=== PATIENT | male | born 1985 | race Caucasian/White ===

== ENCOUNTER 2017-05-01 17:28 | Emergency (ER) | payer MEDICARE, OTHER ==
[~2017-05-01] VITALS: Ht 182.9 cm; Wt 108.9 kg
[~2017-05-01 17:28] MED LIST: ASPIRIN 325MG325 MG PO; ATIVAN GENERIC0.5 MG PO; AUGMENTIN 875-1 EACH PO; COUMADIN 5MG TAB5 MG PO; LOVENOX 10100 MG/1 M SC; NEXIUM40 MG PO; PERCOCET 325 MG1 TA3 PO; PERCOCET 5/3251 EACH PO; SEROQUEL 25MG T25 MG PO; TORADOL10 M1 PO; TRAMADOL 50MG T50 MG PO; VENTOLIN H0.09 MG/AC INH; XANAX2 MG PO; ZOLOFT100 MG PO; ZOLPIDEM 10MG T10 MG PO
--- OUTSIDE RECORDS SUMMARY | 2017-05-01 17:35 | External Medical Summary Rpt ---
Author Author , Organization [employer] Address Unknown Phone Unavailable Purpose Continuity of Care Document - through 2016 Problems Code Diagnosis DOS Provider Status B19.20 UNSPECIFIED VIRAL HEPATITIS C WITHOUT HEPATIC COMA F11.90 OPIOID USE, UNSPECIFIED , UNCOMPLICAT ED M54.2 CERVICALGIA M79.602 PAIN IN LEFT ARM R07.89 OTHER CHEST PAIN Z79.899 OTHER SENIOR LIVING (CURRENT) DRUG THERAPY
--- OUTSIDE RECORDS SUMMARY | 2017-05-01 17:35 | External Medical Summary Rpt ---
Author Author , Organization [employer] Address Unknown Phone Unavailable Purpose Continuity of Care Document - through 2016 Problems Code Diagnosis DOS Provider Status B19.20 UNSPECIFIED VIRAL HEPATITIS C WITHOUT HEPATIC COMA F11.90 OPIOID USE, UNSPECIFIED , UNCOMPLICAT ED M54.2 CERVICALGIA M79.602 PAIN IN LEFT ARM R07.89 OTHER CHEST PAIN Z79.899 OTHER JAIL (CURRENT) DRUG THERAPY
--- OUTSIDE RECORDS SUMMARY | 2017-05-01 17:35 | External Medical Summary Rpt ---
Demographics Preferred Language Guatemalan Marital Status Unknown Congregation Affiliation Unknown Race Unknown Ethnic Group Unknown Author Author , Organization [employer] Address Unknown Phone Unavailable Purpose Continuity of Care Document - through 2016 Immunization No patient found.
--- OUTSIDE RECORDS SUMMARY | 2017-05-01 17:35 | External Medical Summary Rpt ---
Demographics Preferred Language Swazi Marital Status Unknown Worship Affiliation Unknown Race Unknown Ethnic Group Unknown Author Author , Organization [employer] Address Unknown Phone Unavailable Purpose Continuity of Care Document - through 2016 Immunization No patient found.
--- OUTSIDE RECORDS SUMMARY | 2017-05-01 17:36 | External Medical Summary Rpt ---
Author Author DARIANA Hansen, [employer] Organization [employer] Address Unknown Phone Unavailable Results CBC W Auto Differential panel in Blood Observa Value Referen Units Interpr Notes Date tion ce etation Range Basophils 0 - 0.2 K/MM3 Normal No Apr 18 informati 2017 9:10 [#/volume on in AM ] in source Blood by data Automated count Basophils 0.1 - 2.0 % Normal No Apr 18 /100 informati 2017 9:10 leukocyte on in AM s in source Blood by data Automated count Eosinophi 0.0 - 0.4 K/mm3 Normal No Apr 18 ls informati 2017 9:10 [#/volume on in AM ] in source Blood by data Automated count Eosinophi 0.1 - % Normal No Apr 18 ls/100 12.0 informati 2017 9:10 leukocyte on in AM s in source Blood by data Automated count Granulocy 1.3 - 8.0 K/mm3 Normal No Apr 18 radha informati 2017 9:10 [#/volume on in AM ] in source Blood by data Automated count Granulocy 37.0 - % Normal No Apr 18 radha/100 80.0 informati 2017 9:10 leukocyte on in AM s in source Blood by data Automated count Hematocri 42.0 - % Low No Apr 18 t [Volume 52.0 informati 2017 9:10 on in AM Fraction] source of Blood data Hemoglobi 14.1 - g/dL Low No Apr 18 n 18.0 informati 2017 9:10 [Mass/vol on in AM ume] in source Blood data Lymphocyt 0.7 - 4.5 K/mm3 Normal No Apr 18 es informati 2017 9:10 [#/volume on in AM ] in source Unspecifi data ed specimen by Automated count Lymphocyt 10 - 50 % Normal No Apr 18 es informati 2017 9:10 [#/volume on in AM ] in source Unspecifi data ed specimen by Automated count Erythrocy 27 - 31.2 pg Normal No Apr 18 te mean informati 2017 9:10 corpuscul on in AM ar source hemoglobi data n [Entitic mass] Erythrocy 31.8 - g/dl Normal No Apr 18 te mean 35.4 informati 2017 9:10 corpuscul on in AM ar source hemoglobi data n concentra tion [Mass/vol ume] by Automated count Erythrocy 82.2 - fl Low No Apr 18 te mean 97.8 informati 2017 9:10 corpuscul on in AM ar volume source [Entitic data volume] by Automated count Monocytes 0.1 - 1.0 K/mm3 Normal No Apr 18 informati 2017 9:10 [#/volume on in AM ] in source Blood by data Automated count Monocytes 1.7 - 9.3 % Normal No Mar 21 /100 informati 2017 9:10 leukocyte on in AM s in source Blood by data Automated count Platelet 7.4 - fl Low No Apr 18 mean 10.4 informati 2017 9:10 volume on in AM [Entitic source volume] data in Blood by Automated count Platelets 142 - 424 K/mm3 Normal No Apr 18 informati 2017 9:10 [#/volume on in AM ] in source Blood data Erythrocy 4.6 - 6.2 M/mm3 Normal No Apr 18 radha informati 2017 9:10 [#/volume on in AM ] in source Amniotic data fluid Erythrocy 11.5 - % Normal No Apr 18 te 17.5 informati 2017 9:10 distribut on in AM ion width source [Entitic data volume] by Automated count Leukocyte 4.8 - K/MM3 Normal No Mar 21 s 10.8 informati 2017 9:10 [#/volume on in AM ] in source Blood data
--- OUTSIDE RECORDS SUMMARY | 2017-05-01 17:36 | External Medical Summary Rpt ---
Author Author DARIANA Hansen, [employer] Organization [employer] Address Unknown Phone Unavailable Results CBC [...]
[2017-05-01] MEDS ORDERED: ASPIRIN 81MG TA81 MG PO (17:45)
[2017-05-01] MEDS ORDERED: IBUPROFEN800 MG PO (18:11)
--- NOTE | 2017-05-01 18:12 | Urgent Treatment Center Report ---
History of Present Issue Visit Reason Pt arrived:Walked Presenting Problem:PT STATES PRESSURE TO LEFT SIDE OF NECK. STATES AREA WAS HOT TO TOUCH. AND GOES INTO HIS LEFT EAR. STATES HAVING A BUSTED EAR DRUM THAT HE WAS SEEN FOR APPROX ONE WEEK AGO AND TAKING ANTIBIOTICS FOR Location if Accident: Onset of symptoms date/time:/ or onset unknown for:MEDICAL HX UNKNOWN Have you (or family members/close friends) recently traveled outside the [place]? N If Yes, where/when: Have you had exposure to infectious disease within the past month? TB? Other? Specify: Patient state that he was recently seen and treated here at the [facility] for sorethroat and swollen lymph nodes. State that today he is having dental pain and states that he thought the lymph nodes may be swollen again states that his left ear was hot to touch and has had a "busted eardrum" in there for about a year. States that he came in today to make sure that the infection was clearing up and to get something for his dental pain ALLERGIES Coded Allergies: erythromycin base (Mild, 04/18/17) Home Medications Active Scripts Amoxicillin/Potassium Clav (Augmentin 875-125 Tablet) 1 EACH PO BID #20 TAB Prov: 04/23/17 Reported Medications ASPIRIN (Aspirin) 81 MG PO DAILY History Medical History General CAD? No Angina: No [place]: No Hypertension? No Hyperlipidemia? No CHF? No DVT? No PE? No COPD? No Asthma? No Anemia? No GERD? No Gastric ulcers? No GI Bleed? No Hernia? No Thyroid Problems? No Hypothyroidism? No CVA? No Seizures? No Diabetes? No Renal Insuffiency? No UTI? No Stones? No BPH? No GB Disease: No Nephritic Syndrome? No Asplenia? No Hepatitis? Yes Sickle Cell Disease? No Arthritis? No Migraines? No Cataracts? No Glaucoma? No MRSA? No HIV? No TB? No Anxiety? No Depression? No Cancer? No More? No Immunization HX DT/Tetanus Unknown Flu LAST YEAR Pneumonia NEVER Surgical Hx Previous Surgery?Y TEAR DUCT R KNEE Social History Smoking Hx Smoker: Current Every Day Smoker Tobacco: Yes Type Cigarettes Packs/day < 1 Pack Alcohol Alcohol: No Review of Systems All Other Systems Reviewed and Negative ENT dental caries, loose teeth. Physical Exam Vital Signs Vital Signs Date Time Temp Pulse Resp B/P Pulse O2 O2 Flow FiO2 Ox Delivery Rate 05/01 1742 98.2 102 18 159/99 97 General Appearance normal appearance, WD/WN, no apparent distress Ear, Nose, Throat dental caries, gingival disease, Patient had several loose and broken teeth, and dental caries no swollen nodes felt Respiratory Status Yes: trachea midline, chest symmetrical, non tender chest. No: respiratory distress. 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 No Results/Orders Current Medication Orders Sig/Tim Start time Last Medication Dose Route Stop Time Status Admin Lidocaine HCl 15 ML ONCE ONE 05/01 1815 AC 05/01 TP 05/01 Lidocaine HCl 0 .STK-MED ONE 05/01 1808 DC .ROUTE Orders Procedure Date/time Status [facility] DENTAL BALL 05/01 1806 Active Departure Departure Time of Disposition 1806 Disposition DC Home or Self Care(routine) Clinical Impression Primary Impression: Pain due to dental caries Condition STABLE Referrals Lexa MOSQUERA,Anthony Montesinos (Family): 2 Days-Call Office Patient Instructions DI for Tooth Decay, Tooth Decay Additional Instructions Follow up with dentist to have dental caries removed and fixed You will continue having infections in your mouth until the broken teeth are removed or fixed Over the counter Motrin or Tylenol as needed for pain Return if needed Follow up with family doctor Discharge Counseling Counseled pt/family regarding diagnosis, medications/RX, home care, follow up needs Prescriptions Current Visit Scripts Ibuprofen (Ibuprofen 800MG) 800 MG PO QIDP PRN pain #30 TAB at 1811
--- NOTE | 2017-05-01 18:12 | Urgent Treatment Center Report ---
History of Present Issue Visit Reason Pt arrived:Walked Presenting Problem:PT STATES PRESSURE TO LEFT SIDE OF NECK. STATES AREA WAS HOT TO TOUCH. AND GOES INTO HIS LEFT EAR. STATES HAVING A BUSTED EAR DRUM THAT HE WAS SEEN FOR APPROX ONE WEEK AGO AND TAKING ANTIBIOTICS FOR Location if Accident: Onset of symptoms date/time:/ or onset unknown for:MEDICAL HX UNKNOWN Have you (or family members/close friends) recently traveled outside the [place]? N If Yes, where/when: Have you had exposure to infectious disease within the past month? TB? Other? Specify: Patient state that he was recently seen and treated here at the [facility] for sorethroat and swollen lymph nodes. State that today he is having dental pain and states that he thought the lymph nodes may be swollen again states that his left ear was hot to touch and has had a "busted eardrum" in there for about a year. States that he came in today to make sure that the infection was clearing up and to get something for his dental pain ALLERGIES Coded Allergies: erythromycin base (Mild, 04/18/17) Home Medications Active Scripts Amoxicillin/Potassium Clav (Augmentin 875-125 Tablet) 1 EACH PO BID #20 TAB Prov: 04/23/17 Reported Medications ASPIRIN (Aspirin) 81 MG PO DAILY History Medical History General CAD? No Angina: No [place]: No Hypertension? No Hyperlipidemia? No CHF? No DVT? No PE? No COPD? No Asthma? No Anemia? No GERD? No Gastric ulcers? No GI Bleed? No Hernia? No Thyroid Problems? No Hypothyroidism? No CVA? No Seizures? No Diabetes? No Renal Insuffiency? No UTI? No Stones? No BPH? No GB Disease: No Nephritic Syndrome? No Asplenia? No Hepatitis? Yes Sickle Cell Disease? No Arthritis? No Migraines? No Cataracts? No Glaucoma? No MRSA? No HIV? No TB? No Anxiety? No Depression? No Cancer? No More? No Immunization HX DT/Tetanus Unknown Flu LAST YEAR Pneumonia NEVER Surgical Hx Previous Surgery?Y TEAR DUCT R KNEE Social History Smoking Hx Smoker: Current Every Day Smoker Tobacco: Yes Type Cigarettes Packs/day < 1 Pack Alcohol Alcohol: No Review of Systems All Other Systems Reviewed and Negative ENT dental caries, loose teeth. Physical Exam Vital Signs Vital Signs Date Time Temp Pulse Resp B/P Pulse O2 O2 Flow FiO2 Ox Delivery Rate 05/01 1742 98.2 102 18 159/99 97 General Appearance normal appearance, WD/WN, no apparent distress Ear, Nose, Throat dental caries, gingival disease, Patient had several loose and broken teeth, and dental caries no swollen nodes felt Respiratory Status Yes: trachea midline, chest symmetrical, non tender chest. No: respiratory distress. 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 No Results/Orders Current Medication Orders Sig/Tim Start time Last Medication Dose Route Stop Time Status Admin Lidocaine HCl 15 ML ONCE ONE 05/01 1815 AC 05/01 TP 05/01 Lidocaine HCl 0 .STK-MED ONE 05/01 1808 DC .ROUTE Orders Procedure Date/time Status [facility] DENTAL BALL 05/01 1806 Active Departure Departure Time of Disposition 1806 Disposition DC Home or Self Care(routine) Clinical Impression Primary Impression: Pain due to dental caries Condition STABLE Referrals Lexa MOSQUERA,Anthony Montesinos (Family): 2 Days-Call Office Patient Instructions DI for Tooth Decay, Tooth Decay Additional Instructions Follow up with dentist to have dental caries removed and fixed You will continue having infections in your mouth until the broken teeth are removed or fixed Over the counter Motrin or Tylenol as needed for pain Return if needed Follow up with family doctor Discharge Counseling Counseled pt/family regarding diagnosis, medications/RX, home care, follow up needs Prescriptions Current Visit Scripts Ibuprofen (Ibuprofen 800MG) 800 MG PO QIDP PRN pain #30 TAB at 1811
[2017-05-01 18:13] VITALS: BP 159/99
== END 2017-05-01 18:14 | disposition home or self-care (01) ==
LOC: UTC 17:28
DX: K02.9 Dental caries, unspecified (principal); H92.02 Otalgia, left ear; Z72.0 Tobacco use

== ENCOUNTER → 2017-10-09 | Outpatient (CLI) | payer MEDICARE, OTHER ==
[~2017-10-09] MED LIST changes: +ASPIRIN 81MG TA81 MG PO; +IBUPROFEN800 MG PO
--- NOTE | 2017-10-09 21:25 | RADIOLOGY REPORT PS360 ---
PROCEDURE: 2-D M-mode and color Doppler study INDICATIONS FOR THE TEST: Chest pain X COPD Heart Murmur Tobacco SmokingX Palpitations Fatigue Syncope Edema Hypertension Diabetes Mellitus Rheumatic Fever SOB DOEXObesityXHyperlipidemia Family History HD Additional History H/O IV DRUG USE PATIENT INFORMATION HEIGHT: 72 WEIGHT:235 GENDER: Male B/P:173/99 2-D/M-MODE INTERPRETATION: 2-D MEASUREMENTS OBSERVED VALUES IN CMS Right Ventricular Dimension (RVDd) 2.4 Interventricular Septum (Thickness)(IVsd) 1.1 Left Ventricular Internal Dimensions(LVIDd) 5.2 Left Ventricular Posterior Wall (Thickness)(LVPWd) .9 Aortic Root 2.9 Aortic Cusp Separation 2.1 Left Atrial Dimensions (LAD) 3.5 2D 1. Left atrium is normal size, left ventricle is normal size, there is no concentric left ventricular hypertrophy, visually estimated ejection fraction 55% with no obvious regional wall motion abnormality. 2. The right atrium and right ventricle is normal size and contractility. 3. The aortic, mitral and tricuspid valve are grossly normal. 4. The pulmonic valve is minimally thickened and fibrosed. 5. There is no significant pericardial effusion noted. DOPPLER INTERROGATION: Doppler interrogation of the aortic, mitral and tricuspid valvular presence of mild mitral and tricuspid regurgitation, tricuspid and jet velocity is insufficient for calculation of the right ventricular systolic pressure, diastolic parameters are within normal range. CONCLUSION: 1. Normal left ventricular size, preserved left ventricular systolic function, visually estimated ejection fraction 55% with no obvious regional wall motion abnormality. Diastolic parameters are within normal range. 2. Mild mitral and tricuspid regurgitation 3. No significant pericardial effusion noted.
== END ==
LOC: RT 08:00
DX: R07.89 Other chest pain (principal)